=== PATIENT | male | born 1940 | race African-American/Black ===

== ENCOUNTER 2016-05-13 13:05 | Day surgery (SDC) | payer MEDICARE ==
[~2016-05-13 13:05] MED LIST: ANCEF/STERILE WATER 2 GM/20 ML 2 GM/20 ML SYRINGE IV NR; WATER FOR IRRIG STERILE IR ONE
[2016-05-13] MEDS ORDERED: DIPRIVAN 10 MG/ML IV ONE (14:10)
[2016-05-13] MEDS ORDERED: DILAUDID ONE (14:11)
[2016-05-13 14:15] LABS: Eosinophils % (Auto) 6.4 % (0.0-4.3); Hematocrit 25.7 % (35.5-45.6); Hemoglobin 8.2 gm/dl (11.8-15.2); Mean Corpuscular HGB Conc 32 % (32-34); Mean Corpuscular Hemoglobin 31 pg (28-32); Mean Corpuscular Volume 98 fl (84-94); Red Blood Count 2.62 M/mm3 (3.65-5.03); Red Cell Distribution Width 15.7 % (13.2-15.2); White Blood Count 3.8 K/mm3 (4.5-11.0)
[2016-05-13 14:17] LABS: Basophils % (Auto) 0.5 % (0.0-1.8); Platelet Count 98 K/mm3 (140-440)
[2016-05-13] MEDS ORDERED: NACL 0.9% 1000 ML 1,000 ML ONE ×2 (14:19→15:39)
--- NOTE | 2016-05-13 14:19 | Anesthesia Consultation ---
Anesthesia Consult and Med Hx Date of service: 05/13/16 - Airway Anesthetic Teeth Evaluation: Poor (2 total teeth in the mouth) ROM Head & Neck: Adequate Mental/Hyoid Distance: Adequate Mallampati Class: Class II Intubation Access Assessment: Probably Good - Pre-Operative Health Status ASA Pre-Surgery Classification: ASA3 - Pulmonary Hx Smoking: Yes (STOPPED X 40 YRS-LESS THAN A PACK PER WEEK) Hx Sleep Apnea: No (HUE PRE SCREEN LOW RISK) - Cardiovascular System Hx Hypertension: No Hx Percutaneous Transluminal Coronary Angioplasty (PTCA): Yes Hx Valvular Heart Disease: Yes (H/O valve replacement) Hx Peripheral Vascular Disease: (history of AAA surgery) - Central Nervous System Hx Neuromuscular Disorder: Yes (gout, whealchair bound) Hx Psychiatric Problems: No - Gastrointestinal Hx Ulcer: (H/O bowel surgery) - Endocrine Hx Renal Disease: Yes (CKD, BPH) Hx Liver Disease: Yes (elevated LFTs, cholodocholithiasis) - Hematic Hx Anemia: Yes - Other Systems Hx Cancer: Yes (colon CA, colon resection) - Additional Comments Anesthesia Medical History Comments: mulnutritioned
[2016-05-13 14:23] LABS: Albumin 3.1 g/dL (3.9-5); Albumin/Globulin Ratio 0.6 %; BUN/Creatinine Ratio 22.05; Bilirubin,Total 0.4 mg/dL (0.1-1.2); Calcium 8.3 mg/dL (8.4-10.2); Chloride 111.5 mmol/L (98-107); Total Protein 8.4 g/dL (6.3-8.2)
[2016-05-13] MEDS ORDERED: PEPCID IV ONE (14:25)
[2016-05-13] MEDS ORDERED: VERSED IV PRN (14:26)
--- NOTE | 2016-05-13 14:26 | Anesthesia Day of Surgery ---
Anesthesia Day of Surgery - Day of Surgery Patient Examined: Yes Patient H&P Reviewed: Yes Patient is NPO: Yes
[2016-05-13] MEDS ORDERED: NACL 0.9% 1000 ML 1,000 ML IV SCH (15:00)
[2016-05-13] MEDS ORDERED: PEPCID IV NR (15:00)
[2016-05-13] MEDS ORDERED: NEO SYNEPHRINE/NS Syringe(OR USE) IV ONE (15:03)
[2016-05-13] MEDS ORDERED: XYLOCAINE MPF 2% ONE (15:03)
[2016-05-13] MEDS ORDERED: ePHEDrine SULFATE ONE (15:05)
--- NOTE | 2016-05-13 15:20 | Post Operative Note ---
Pre-op diagnosis: urinary retention Post-op diagnosis: same Findings: MUÑOZ Procedure: cydto spt insertion Anesthesia: KALEIGH Surgeon: JACINTO KNIGHT Estimated blood loss: minimal Pathology: none Condition: stable Disposition: PACU
--- NOTE | 2016-05-13 15:23 | Discharge Summary ---
Short Stay Discharge Plan Activity: up only with assistance, other Weight Bearing Status: Partial Weight Bearing Diet: regular Wound: change dressing (q dqy .. teach pts family ) Special Instructions: other (spt care ) Durable Medical Equipment Needed Upon Discharge: other (spt ) Follow up with: DAYA NEVILLE MD [Primary Care Provider] - 7 Days JACINTO KNIGHT MD [Staff Physician] - 6 Weeks
[2016-05-13] MEDS ORDERED: WATER FOR IRRIG STERILE IR ONE ×2 (15:28)
[2016-05-13] MEDS ORDERED: ZOFRAN ONE (15:39)
--- NOTE | 2016-05-13 16:39 | Operative Report ---
PREOPERATIVE DIAGNOSES: Urinary retention and bladder dysfunction. POSTOPERATIVE DIAGNOSES: Urinary retention and bladder dysfunction. PROCEDURE: Cystoscopy, suprapubic tube insertion. SURGEON: Lior Luke MD ANESTHESIA: General. FINDINGS: This is a gentleman with a chronic retention. He now presents with a Bhatt for suprapubic tube. We could not change his Bhatt while in the office. He has difficulty getting up, in wheelchair. He now presents for tube placement. DESCRIPTION OF PROCEDURE: The patient brought to the operating room and placed on the operating table. Following induction of anesthesia, placed in lithotomy position, prepped and draped in usual sterile fashion. The area was marked. There was a midabdominal incision and so we hug the pubic bone. Flexible cystoscopy showed mild bladder, prostatic enlargement. Once the bladder was partially filled, he was placed in Trendelenburg and the incision was made through the skin. This was marked out and the Lowsley was placed and lined up with the incision. Using the cautery, we delivered the Lowsley and a 20-[place] Bhatt came out the meatus. We followed this into the bladder and filled it with approximately 18 mL of sterile water. The patient tolerated the procedure well. There was no significant bleeding. The incision was approximated using the silk for the tube and some Steri-Strips. He was brought to recovery in stable condition. Family notified. JOB# [id number] IRAIDA/ROVERTO
[2016-05-13 17:24] VITALS: BP 147/70
== END 2016-05-13 18:00 | disposition home or self-care (01) ==
LOC: OR 13:05
PROVIDERS: ATTEND Urology
DX: N31.9 Neuromuscular dysfunction of bladder, unspecified (principal); N40.0 Benign prostatic hyperplasia without lower urinary tract symptoms; N18.9 Chronic kidney disease, unspecified; D64.9 Anemia, unspecified; M10.9 Gout, unspecified; Z95.2 Presence of prosthetic heart valve; Z95.5 Presence of coronary angioplasty implant and graft; Z87.891 Personal history of nicotine dependence; Z85.038 Personal history of other malignant neoplasm of large intestine; Z87.19 Personal history of other diseases of the digestive system
CPT/HCPCS: 36415; 51040; 80053; 85025; A4217; J0690; J1170; J2250; J2370; J2405; J2704; J7030

== ENCOUNTER → 2017-09-22 | Outpatient (CLI) | payer MEDICARE ==
[~2017-09-22] MED LIST changes: -ANCEF/STERILE WATER 2 GM/20 ML 2 GM/20 ML SYRINGE IV NR; +SILVER NITRATE TP ONE; -WATER FOR IRRIG STERILE IR ONE; +XYLOCAINE TOPICAL 4% TP ONE
== END | disposition home or self-care (01) ==
LOC: WOUND 13:03
PROVIDERS: ATTEND Surgery
DX: T81.89XA Other complications of procedures, not elsewhere classified, initial encounter (principal); M10.9 Gout, unspecified; E78.5 Hyperlipidemia, unspecified; Z89.421 Acquired absence of other right toe(s); Y83.8 Other surgical procedures as the cause of abnormal reaction of the patient, or of later complication, without mention of misadventure at the time of the procedure; Y92.89 Other specified places as the place of occurrence of the external cause
CPT/HCPCS: 11042; G0463

== ENCOUNTER 2017-09-27 09:04 | Outpatient (CLI) | payer MEDICARE ==
--- NOTE | 2017-09-29 17:38 | Vascular Lab Report ---
LOWER EXTREMITY ARTERIAL DUPLEX: REASON FOR EXAM: Right foot wound. COMMENTS ON THE RIGHT: Triphasic waveforms are seen proximally. Triphasic waveforms are seen distally. No significant velocity gradients are identified. No significant plaque is identified. Findings are consistent with normal perfusion. Findings are consistent with the ability to heal distal wounds. COMMENTS ON THE LEFT: Limited study shows triphasic waveforms at the anterior tibial artery. This is within normal limits. IMPRESSION: RIGHT: Essentially normal arterial flow. LEFT:Essentially normal arterial flow.
== END 2017-09-27 09:05 | disposition home or self-care (01) ==
LOC: VAS 09:04
PROVIDERS: ATTEND Surgery
DX: L97.512 Non-pressure chronic ulcer of other part of right foot with fat layer exposed (principal); L02.611 Cutaneous abscess of right foot; I12.9 Hypertensive chronic kidney disease with stage 1 through stage 4 chronic kidney disease, or unspecified chronic kidney disease; N18.3 Chronic kidney disease, stage 3 (moderate); M86.8X7 Other osteomyelitis, ankle and foot; M10.9 Gout, unspecified; I73.9 Peripheral vascular disease, unspecified; Z90.49 Acquired absence of other specified parts of digestive tract

== ENCOUNTER 2017-09-29 07:49 | Outpatient (CLI) | payer MEDICARE ==
[2017-09-29] MEDS ORDERED: XYLOCAINE TOPICAL 4% TP ONE ×2 (08:10→08:24)
== END 2017-09-29 07:50 | disposition home or self-care (01) ==
LOC: WOUND 07:49
PROVIDERS: ATTEND Surgery
DX: T81.89XD Other complications of procedures, not elsewhere classified, subsequent encounter (principal); M10.9 Gout, unspecified; E78.5 Hyperlipidemia, unspecified; Z89.421 Acquired absence of other right toe(s); Y83.8 Other surgical procedures as the cause of abnormal reaction of the patient, or of later complication, without mention of misadventure at the time of the procedure

== ENCOUNTER 2017-10-20 07:59 | Outpatient (CLI) | payer MEDICARE ==
[2017-10-20] MEDS ORDERED: XYLOCAINE TOPICAL 4% TP ONE ×2 (08:07→08:09)
== END 2017-10-20 08:00 | disposition home or self-care (01) ==
LOC: WOUND 07:59
PROVIDERS: ATTEND Surgery
DX: T81.89XD Other complications of procedures, not elsewhere classified, subsequent encounter (principal); M10.9 Gout, unspecified; E78.5 Hyperlipidemia, unspecified; Z89.421 Acquired absence of other right toe(s); Y83.8 Other surgical procedures as the cause of abnormal reaction of the patient, or of later complication, without mention of misadventure at the time of the procedure

== ENCOUNTER 2017-10-27 08:01 | Outpatient (CLI) | payer MEDICARE ==
[2017-10-27] MEDS ORDERED: XYLOCAINE TOPICAL 4% TP ONE ×2 (08:07→08:19)
== END 2017-10-27 08:02 | disposition home or self-care (01) ==
LOC: WOUND 08:01
PROVIDERS: ATTEND Surgery
DX: T81.89XD Other complications of procedures, not elsewhere classified, subsequent encounter (principal); M10.9 Gout, unspecified; E78.5 Hyperlipidemia, unspecified; Z89.421 Acquired absence of other right toe(s); Y83.8 Other surgical procedures as the cause of abnormal reaction of the patient, or of later complication, without mention of misadventure at the time of the procedure

== ENCOUNTER 2017-11-03 08:06 | Outpatient (CLI) | payer MEDICARE ==
[2017-11-03] MEDS ORDERED: XYLOCAINE TOPICAL 4% TP ONE ×2 (08:17→08:29)
[2017-11-03] MEDS ORDERED: SILVER NITRATE TP ONE ×2 (08:56→16:29)
== END 2017-11-03 08:07 | disposition home or self-care (01) ==
LOC: WOUND 08:06
PROVIDERS: ATTEND Surgery
DX: T81.89XD Other complications of procedures, not elsewhere classified, subsequent encounter (principal); M10.9 Gout, unspecified; E78.5 Hyperlipidemia, unspecified; Z89.421 Acquired absence of other right toe(s); Y83.8 Other surgical procedures as the cause of abnormal reaction of the patient, or of later complication, without mention of misadventure at the time of the procedure
CPT/HCPCS: 11042; G0463; 99212

== ENCOUNTER 2017-11-10 07:59 | Outpatient (CLI) | payer MEDICARE ==
[2017-11-10] MEDS ORDERED: XYLOCAINE TOPICAL 4% TP ONE ×2 (08:06→08:11)
[2017-11-10] MEDS ORDERED: SILVER NITRATE TP ONE (08:11)
== END 2017-11-10 08:00 | disposition home or self-care (01) ==
LOC: WOUND 07:59
PROVIDERS: ATTEND Surgery
DX: T81.89XD Other complications of procedures, not elsewhere classified, subsequent encounter (principal); M10.9 Gout, unspecified; E78.5 Hyperlipidemia, unspecified; Z89.421 Acquired absence of other right toe(s); Y83.8 Other surgical procedures as the cause of abnormal reaction of the patient, or of later complication, without mention of misadventure at the time of the procedure

== ENCOUNTER 2017-11-17 08:02 | Outpatient (CLI) | payer MEDICARE ==
[2017-11-17] MEDS ORDERED: SILVER NITRATE TP ONE ×2 (08:12→08:24)
[2017-11-17] MEDS ORDERED: XYLOCAINE TOPICAL 4% TP ONE ×2 (08:12→08:24)
== END 2017-11-17 08:03 | disposition home or self-care (01) ==
LOC: WOUND 08:02
PROVIDERS: ATTEND Surgery
DX: T81.89XD Other complications of procedures, not elsewhere classified, subsequent encounter (principal); M10.9 Gout, unspecified; E78.5 Hyperlipidemia, unspecified; Z89.421 Acquired absence of other right toe(s); Y83.8 Other surgical procedures as the cause of abnormal reaction of the patient, or of later complication, without mention of misadventure at the time of the procedure

== ENCOUNTER 2017-12-01 08:01 | Outpatient (CLI) | payer MEDICARE ==
[2017-12-01] MEDS ORDERED: SILVER NITRATE TP ONE ×2 (08:26→08:59)
== END 2017-12-01 08:02 | disposition home or self-care (01) ==
LOC: WOUND 08:01
PROVIDERS: ATTEND Surgery
DX: T81.89XD Other complications of procedures, not elsewhere classified, subsequent encounter (principal); M10.9 Gout, unspecified; E78.5 Hyperlipidemia, unspecified; Z89.421 Acquired absence of other right toe(s); Y83.8 Other surgical procedures as the cause of abnormal reaction of the patient, or of later complication, without mention of misadventure at the time of the procedure

== ENCOUNTER 2019-03-17 16:55 | Inpatient (IN) | payer MEDICARE ==
[2019-03-17] MEDS ORDERED: traMADol 50 MG TAB PO ONE (18:41)
--- NOTE | 2019-03-17 18:43 | Event Note ---
ED Screening Note ED Screening Note: had rivera changed yesterday at urology office (changed every 6 weeks) and now blood in catheter bag. urine in tube starting to clear This initial assessment/diagnostic orders/clinical plan/treatment(s) is/are subject to change based on patients health status, clinical progression and re- assessment by fellow clinical providers in the ED. Further treatment and workup at subsequent clinical providers discretion. Patient/guardian urged not to elope from the ED as their condition may be serious if not clinically assessed and managed. Initial orders include: urine bmp cbc
[2019-03-17 20:08] LABS: INR 2.35 (0.87-1.13)
[2019-03-17 20:13] LABS: Partial Thromboplastin Time 66.4 Sec. (24.2-36.6)
[2019-03-17 20:18] LABS: Albumin 2.1 g/dL (3.9-5); Calcium 8.6 mg/dL (8.4-10.2)
[2019-03-17] MEDS ORDERED: DEXTROSE 50% IN WATER (25GM) 50 ML SYRINGE IV ONE (20:51)
[2019-03-17] MEDS ORDERED: SODIUM POLYSTYRENE 15 GM/60 ML ORAL LIQD PO ONE (20:51)
[2019-03-17] MEDS ORDERED: INSULIN REGULAR, HUMAN 100 UNITS/1 ML IV ONE (20:51)
[2019-03-17 21:08] LABS: Basophils % (Auto) 0.5 % (0.0-1.8); Eosinophils % (Auto) 0.7 % (0.0-4.3); Hematocrit 20.6 % (35.5-45.6); Hemoglobin 6.9 gm/dl (11.8-15.2); Lymphocytes # (Auto) 0.5 K/mm3 (1.2-5.4); Lymphocytes % (Auto) 15.6 % (13.4-35.0); Mean Corpuscular HGB Conc 34 % (32-34); Monocytes # (Auto) 0.2 K/mm3 (0.0-0.8); Monocytes % (Auto) 6.4 % (0.0-7.3); Red Blood Count 1.87 M/mm3 (3.65-5.03)
[2019-03-17 21:20] LABS: Bacteria,Urine 1+ /HPF (Negative); Bilirubin,Urine NEG (Negative); Blood,Urine LG (Negative); Color,Urine Amber (Yellow); Mucus,Urine FEW /HPF; Urobilinogen,Urine < 2.0 mg/dL (<2.0)
[2019-03-17 21:23] LABS: Mean Corpuscular Volume 110 fl (84-94); Red Cell Distribution Width 21.7 % (13.2-15.2)
[2019-03-17] MEDS ORDERED: cefTRIAXone/NS 2 GM/100 ML 2 GM/100 ML BAG IV ONE (21:28)
--- NOTE | 2019-03-17 21:48 | XRay Report ---
CHEST 1 VIEW INDICATION / CLINICAL INFORMATION: dyspnea. COMPARISON: None available. FINDINGS: SUPPORT DEVICES: None. HEART / MEDIASTINUM: No significant abnormality. LUNGS / PLEURA: No acute lung disease. Slight blunting of the lateral right costophrenic angle sugges ts pleural effusion. No pneumothorax. ADDITIONAL FINDINGS: Degenerative changes are noted in the thoracic spine. Gaseous distention of the stomach and small bowel. IMPRESSION: 1. No acute lung disease. Signer Name: Milan Sunshine MD Signed: 03/17/2019 9:44 PM Workstation Name: [id number]
[2019-03-17 21:58] LABS: Platelet Count 23 K/mm3 (140-440)
--- NOTE | 2019-03-17 22:15 | Emergency Department Report ---
ED General Adult HPI - General Chief complaint: Urogenital-Male Stated complaint: BLOOD IN URINE/ANEMIA/PAIN Time Seen by Provider: 03/17/19 20:30 Source: patient, family Mode of arrival: Wheelchair Limitations: Language Barrier - History of Present Illness Initial comments: Patient is a 79-year-old gentleman who has brought his grandson to interpret for him. Patient gets his Bhatt catheter replaced every 6 weeks. Patient has a history of urinary retention and stage III kidney disease. He had his Bhatt replaced yesterday and family noted large amount of blood in the Bhatt catheter bag. Patient is complaining of some generalized pain shortness of breath. Patient denies any fever nausea vomiting at this time. Family states that the patient is not on any blood thinners. Severity scale (0 -10): 9 - Related Data Home Medications Medication Instructions Recorded Confirmed Last Taken Cefuroxime Axetil [Cefuroxime] 250 mg PO QDAY 05/13/16 09/10/17 09/08/17 Previous Rx's Medication Instructions Recorded Last Taken Type Cefuroxime Axetil [Ceftin] 250 mg PO Q24H #14 ml 09/20/17 Unknown Rx Tamsulosin [Flomax] 0.4 mg PO QDAY #30 cap 09/20/17 Unknown Rx amLODIPine 10 mg PO QDAY #30 tablet 09/20/17 Unknown Rx oxyCODONE /ACETAMINOPHEN [Percocet 2 tab PO Q8H PRN #30 tablet 09/20/17 Unknown Rx 5/325 mg] predniSONE [Deltasone] 10 mg PO QDAY #30 tablet 09/20/17 Unknown Rx Allergies Allergy/AdvReac Type Severity Reaction Status Date / Time No Known Allergies Allergy Verified 02/16/13 08:37 ED Review of Systems ROS: Stated complaint: BLOOD IN URINE/ANEMIA/PAIN Other details as noted in HPI Comment: All other systems reviewed and negative ED Past Medical Hx - Past Medical History Previous Medical History?: Yes Hx Hypertension: Yes (Documented in chart however patient denies previous diagnosis.) Hx Heart Attack/AMI: No Hx Liver Disease: No Hx Renal Disease: Yes (IVANIA on CKD, urinary retention with suprapubic catheter in place) Hx Arthritis: Yes Hx Asthma: No - Surgical History Past Surgical History?: Yes Hx Cholecystectomy: Yes - Social History Smoking Status: Never Smoker Substance Use Type: None - Medications Home Medications: Home Medications Medication Instructions Recorded Confirmed Last Taken Type Cefuroxime Axetil [Cefuroxime] 250 mg PO QDAY 05/13/16 09/10/17 09/08/17 History Cefuroxime Axetil [Ceftin] 250 mg PO Q24H #14 ml 09/20/17 Unknown Rx Tamsulosin [Flomax] 0.4 mg PO QDAY #30 cap 09/20/17 Unknown Rx amLODIPine 10 mg PO QDAY #30 tablet 09/20/17 Unknown Rx oxyCODONE /ACETAMINOPHEN [Percocet 2 tab PO Q8H PRN #30 tablet 09/20/17 Unknown Rx 5/325 mg] predniSONE [Deltasone] 10 mg PO QDAY #30 tablet 09/20/17 Unknown Rx ED Physical Exam - General Limitations: Language Barrier General appearance: alert, in no apparent distress - Head Head exam: Present: atraumatic, normocephalic - Eye Eye exam: Present: normal appearance - ENT ENT exam: Present: mucous membranes moist - Neck Neck exam: Present: normal inspection - Respiratory Respiratory exam: Present: normal lung sounds bilaterally. Absent: respiratory distress, wheezes, rales, rhonchi - Cardiovascular Cardiovascular Exam: Present: regular rate, normal rhythm, normal heart sounds. Absent: systolic murmur, diastolic murmur, rubs, gallop - GI/Abdominal GI/Abdominal exam: Present: soft, tenderness, normal bowel sounds. Absent: distended, guarding, rebound - Rectal Rectal exam: Present: deferred - Extremities Exam Extremities exam: Present: normal inspection - Back Exam Back exam: Present: normal inspection - Neurological Exam Neurological exam: Present: alert, oriented X3 - Psychiatric Psychiatric exam: Present: normal affect, normal mood - Skin Skin exam: Present: warm, dry, intact, normal color. Absent: rash ED Course Vital Signs 03/17/19 03/17/19 17:11 18:39 Temperature 98.5 F Pulse Rate 78 78 Respiratory 20 18 Rate Blood Pressure 111/39 Blood Pressure 111/40 [Right] O2 Sat by Pulse 98 98 Oximetry ED Medical Decision Making - Lab Data Result diagrams: 03/17/19 21:00 03/17/19 19:26 Lab Results 03/17/19 03/17/19 03/17/19 Range/Units 19:26 19:26 21:00 WBC 3.0 L (4.5-11.0) K/mm3 RBC 1.87 L (3.65-5.03) M/mm3 Hgb 6.9 L (11.8-15.2) gm/dl Hct 20.6 L (35.5-45.6) % MCV 110 H (84-94) fl MCH 37 H (28-32) pg MCHC 34 (32-34) % RDW 21.7 H (13.2-15.2) % Plt Count 23 L (140-440) K/mm3 Lymph % (Auto) 15.6 (13.4-35.0) % Wayne % (Auto) 6.4 (0.0-7.3) % Eos % (Auto) 0.7 (0.0-4.3) % Baso % (Auto) 0.5 (0.0-1.8) % Lymph # 0.5 L (1.2-5.4) K/mm3 Wayne # 0.2 (0.0-0.8) K/mm3 Eos # 0.0 (0.0-0.4) K/mm3 Baso # 0.0 (0.0-0.1) K/mm3 Seg Neutrophils % 76.8 H (40.0-70.0) % Seg Neutrophils # 2.3 (1.8-7.7) K/mm3 PT 26.2 H (12.2-14.9) Sec. INR 2.35 H (0.87-1.13) APTT 66.4 H* (24.2-36.6) Sec. Sodium 137 (137-145) mmol/L Potassium 5.8 H (3.6-5.0) mmol/L Chloride 112.7 H (98-107) mmol/L Carbon Dioxide 10 L (22-30) mmol/L Anion Gap 20 mmol/L BUN 90 H (9-20) mg/dL Creatinine 4.1 H (0.8-1.5) mg/dL Estimated GFR 14 ml/min BUN/Creatinine Ratio 22 % Glucose 59 L (75-100) mg/dL Calcium 8.6 (8.4-10.2) mg/dL Total Bilirubin 1.80 H (0.1-1.2) mg/dL AST 183 H (5-40) units/L ALT 66 H (7-56) units/L Alkaline Phosphatase 251 H (35-129) units/L Total Protein 8.6 H (6.3-8.2) g/dL Albumin 2.1 L (3.9-5) g/dL Albumin/Globulin Ratio 0.3 % Urine Color (Yellow) Urine Turbidity (Clear) Urine pH (5.0-7.0) Ur Specific Morris (1.003-1.030) Urine Protein (Negative) mg/dL Urine Glucose (UA) (Negative) mg/dL Urine Ketones (Negative) mg/dL Urine Blood (Negative) Urine Nitrite (Negative) Urine Bilirubin (Negative) Urine Urobilinogen (<2.0) mg/dL Ur Leukocyte Esterase (Negative) Urine WBC (Auto) (0.0-6.0) /HPF Urine RBC (Auto) (0.0-6.0) /HPF Urine Bacteria (Auto) (Negative) /HPF Urine Mucus /HPF 03/17/19 Range/Units Unknown WBC (4.5-11.0) K/mm3 RBC (3.65-5.03) M/mm3 Hgb (11.8-15.2) gm/dl Hct (35.5-45.6) % MCV (84-94) fl MCH (28-32) pg MCHC (32-34) % RDW (13.2-15.2) % Plt Count (140-440) K/mm3 Lymph % (Auto) (13.4-35.0) % Wayne % (Auto) (0.0-7.3) % Eos % (Auto) (0.0-4.3) % Baso % (Auto) (0.0-1.8) % Lymph # (1.2-5.4) K/mm3 Wayne # (0.0-0.8) K/mm3 Eos # (0.0-0.4) K/mm3 Baso # (0.0-0.1) K/mm3 Seg Neutrophils % (40.0-70.0) % Seg Neutrophils # (1.8-7.7) K/mm3 PT (12.2-14.9) Sec. INR (0.87-1.13) APTT (24.2-36.6) Sec. Sodium (137-145) mmol/L Potassium (3.6-5.0) mmol/L Chloride (98-107) mmol/L Carbon Dioxide (22-30) mmol/L Anion Gap mmol/L BUN (9-20) mg/dL Creatinine (0.8-1.5) mg/dL Estimated GFR ml/min BUN/Creatinine Ratio % Glucose (75-100) mg/dL Calcium (8.4-10.2) mg/dL Total Bilirubin (0.1-1.2) mg/dL AST (5-40) units/L ALT (7-56) units/L Alkaline Phosphatase (35-129) units/L Total Protein (6.3-8.2) g/dL Albumin (3.9-5) g/dL Albumin/Globulin Ratio % Urine Color Keira (Yellow) Urine Turbidity Cloudy (Clear) Urine pH 6.0 (5.0-7.0) Ur Specific Morris 1.014 (1.003-1.030) Urine Protein 100 mg/dl (Negative) mg/dL Urine Glucose (UA) Neg (Negative) mg/dL Urine Ketones Neg (Negative) mg/dL Urine Blood Lg (Negative) Urine Nitrite Neg (Negative) Urine Bilirubin Neg (Negative) Urine Urobilinogen < 2.0 (<2.0) mg/dL Ur Leukocyte Esterase Lg (Negative) Urine WBC (Auto) 38.0 H (0.0-6.0) /HPF Urine RBC (Auto) 13.0 (0.0-6.0) /HPF Urine Bacteria (Auto) 1+ (Negative) /HPF Urine Mucus Few /HPF - Radiology Data Ordering Physician: JEY JOE MD Date of Service: 03/17/19 Procedure(s): XR chest 1V ap Accession Number(s): [id number] cc: JEY JOE MD Fluoro Time In Minutes: CHEST 1 VIEW INDICATION / CLINICAL INFORMATION: dyspnea. COMPARISON: None available. FINDINGS: SUPPORT DEVICES: None. HEART / MEDIASTINUM: No significant abnormality. LUNGS / PLEURA: No acute lung disease. Slight blunting of the lateral right costophrenic angle suggests pleural effusion. No pneumothorax. ADDITIONAL FINDINGS: Degenerative changes are noted in the thoracic spine. Gaseous distention of the stomach and small bowel. IMPRESSION: 1. No acute lung disease. Signer Name: Milan Sunshine MD Signed: 03/17/2019 9:44 PM Workstation Name: [id number] - Medical Decision Making Comparison to the patient's previous laboratory studies the patient's creatinine has doubled. He has a baseline creatinine of 2 and S4. Patient also has elevated potassium. EKG does not show any peaked T waves. Patient had his hyperkalemia treated and the patient will be admitted for observation for evaluation of worsening renal function. The patient does have evidence of UTI. Although there is gross blood in the catheter bag the new urine that is draining is clear. Patient given a dose of Rocephin. Patient does have a INR is therapeutic range for anticoagulation. Family states he did not believe he is on any anticoagulation however patient likely is on Coumadin. Patient's hyperkalemia was treated with Kayexalate, D50 and insulin Critical Care Time: Yes (30) Critical care attestation.: If time is entered above; I have spent that time in minutes in the direct care of this critically ill patient, excluding procedure time. ED Disposition Clinical Impression: Acute on chronic renal failure, Hyperkalemia, Hematuria, Acute cystitis with hematuria, Anemia in chronic illness, Metabolic acidosis Disposition: -09 OP ADMIT IP TO THIS HOSP Is pt being admited?: Yes Does the pt Need Aspirin: No Condition: Stable Time of Disposition: 22:20
[2019-03-17] MEDS ORDERED: ONDANSETRON 4 MG/2 ML INJ IV PRN (23:32)
[2019-03-17] MEDS ORDERED: MAGNESIUM HYDROXIDE (MOM) ORAL LIQD UDC PO PRN (23:32)
[2019-03-17] MEDS ORDERED: SODIUM CHLORIDE 0.9% 1000 ML 1,000 ML IV SCH (23:45)
--- NOTE | 2019-03-17 23:58 | History and Physical Report ---
History of Present Illness Date of examination: 03/17/19 Date of admission: 03/17/19 22:20 Chief complaint: Hematuria History of present illness: 79-year-old male known history of hypertension, chronic kidney disease, history of urinary retention with Bhatt catheter in place presenting to the emergency room today complaining of bloody urine. Patient is from [facility] and does not speak Estonian however son was by the bedside was able to interpret. Patient also indicates that he has been having generalized fatigue and having some shortness of breath over the past few days. He has had decreased appetite over the past 1 to 2 weeks, he has been having some nausea and vomiting and occasional bouts of diarrhea. There has been no fever or chills. He denies any chest pain. He had his Bhatt catheter replaced yesterday and patient had noticed hematuria today. Upon evaluation in the emergency room patient was found to have a UTI, hyperkalemic, elevated INR, worsening of his renal function and anemia. Vital signs were significant for hypothermia. He was started on empiric IV antibiotics. Medications were given for the hyperkalemia and subsequently admitted into the intensive care unit. Past History Past Medical History: hypertension, other (chronic kidney disease,urinary retention.) Past Surgical History: cholecystectomy, Other (suprapubic catheter placement) Social history: no significant social history Family history: no significant family history Medications and Allergies Allergies Allergy/AdvReac Type Severity Reaction Status Date / Time No Known Allergies Allergy Verified 02/16/13 08:37 Home Medications Medication Instructions Recorded Confirmed Last Taken Type Cefuroxime Axetil [Cefuroxime] 250 mg PO QDAY 05/13/16 09/10/17 09/08/17 History Cefuroxime Axetil [Ceftin] 250 mg PO Q24H #14 ml 09/20/17 Unknown Rx Tamsulosin [Flomax] 0.4 mg PO QDAY #30 cap 09/20/17 Unknown Rx amLODIPine 10 mg PO QDAY #30 tablet 09/20/17 Unknown Rx oxyCODONE /ACETAMINOPHEN [Percocet 2 tab PO Q8H PRN #30 tablet 09/20/17 Unknown Rx 5/325 mg] predniSONE [Deltasone] 10 mg PO QDAY #30 tablet 09/20/17 Unknown Rx Active Meds: Active Medications Acetaminophen (Tylenol) 650 mg PO Q4H PRN PRN Reason: Pain MILD(1-3)/Fever >100.5/PEREZ Sodium Chloride (Nacl 0.9% 1000 Ml) 1,000 mls @ 75 mls/hr IV DIRECT ANA LAURA Ceftriaxone Sodium (Rocephin/Ns 1 Gm/50 Ml) 1 gm in 50 mls @ 100 mls/hr IV Q24HR ANA LAURA; Protocol Magnesium Hydroxide (Milk Of Magnesia) 30 ml PO Q4H PRN PRN Reason: Constipation Ondansetron HCl (Zofran) 4 mg IV Q8H PRN PRN Reason: Nausea And Vomiting Sodium Chloride (Sodium Chloride Flush Syringe 10 Ml) 10 ml IV BID ANA LAURA Sodium Chloride (Sodium Chloride Flush Syringe 10 Ml) 10 ml IV PRN PRN PRN Reason: LINE FLUSH Review of Systems Constitutional: weight loss, fever, anorexia, fatigue, weakness Cardiovascular: no chest pain, no palpitations Respiratory: no cough, no hemoptysis Gastrointestinal: nausea, vomiting, diarrhea Genitourinary Male: hematuria Musculoskeletal: neck pain Integumentary: no rash, no pruritis Neurological: no headaches, no change in mentation Exam - Constitutional Vitals: Temp Pulse Resp BP Pulse Ox 98.5 F 78 18 111/39 98 03/17/19 17:11 03/17/19 18:39 03/17/19 18:39 03/17/19 18:39 03/17/19 18:39 General appearance: Present: no acute distress, cachectic - EENT Eyes: Present: PERRL, EOM intact ENT: hearing intact, clear oral mucosa, dentition normal - Neck Neck: Present: supple, normal ROM - Respiratory Respiratory effort: normal Respiratory: bilateral: CTA - Cardiovascular Rhythm: regular Heart Sounds: Present: S1 & S2 - Extremities Extremities: no ischemia, pulses intact, Full ROM Extremity abnormal: edema (1+) - Abdominal General gastrointestinal: Present: soft, non-tender, non-distended - Integumentary Integumentary: Present: clear, warm, dry - Musculoskeletal Musculoskeletal: strength equal bilaterally, other (severe arthritic changes on fingers and toes.) - Psychiatric Psychiatric: appropriate mood/affect - Neurologic Neurologic: CNII-XII intact, moves all extremities Results - Labs CBC & Chem 7: 03/18/19 05:19 03/18/19 05:19 Labs: Abnormal lab results 02/08/2703/17/19 03/17/19 Range/Units 19:26 19:26 21:00 WBC 3.0 L (4.5-11.0) K/mm3 RBC 1.87 L (3.65-5.03) M/mm3 Hgb 6.9 L (11.8-15.2) gm/dl Hct 20.6 L (35.5-45.6) % MCV 110 H (84-94) fl MCH 37 H (28-32) pg RDW 21.7 H (13.2-15.2) % Plt Count 23 L (140-440) K/mm3 Lymph # 0.5 L (1.2-5.4) K/mm3 Seg Neutrophils % 76.8 H (40.0-70.0) % PT 26.2 H (12.2-14.9) Sec. INR 2.35 H (0.87-1.13) APTT 66.4 H* (24.2-36.6) Sec. Potassium 5.8 H (3.6-5.0) mmol/L Chloride 112.7 H (98-107) mmol/L Carbon Dioxide 10 L (22-30) mmol/L BUN 90 H (9-20) mg/dL Creatinine 4.1 H (0.8-1.5) mg/dL Glucose 59 L (75-100) mg/dL Total Bilirubin 1.80 H (0.1-1.2) mg/dL AST 183 H (5-40) units/L ALT 66 H (7-56) units/L Alkaline Phosphatase 251 H (35-129) units/L Total Protein 8.6 H (6.3-8.2) g/dL Albumin 2.1 L (3.9-5) g/dL Urine WBC (Auto) (0.0-6.0) /HPF 03/17/19 Range/Units Unknown WBC (4.5-11.0) K/mm3 RBC (3.65-5.03) M/mm3 Hgb (11.8-15.2) gm/dl Hct (35.5-45.6) % MCV (84-94) fl MCH (28-32) pg RDW (13.2-15.2) % Plt Count (140-440) K/mm3 Lymph # (1.2-5.4) K/mm3 Seg Neutrophils % (40.0-70.0) % PT (12.2-14.9) Sec. INR (0.87-1.13) APTT (24.2-36.6) Sec. Potassium (3.6-5.0) mmol/L Chloride (98-107) mmol/L Carbon Dioxide (22-30) mmol/L BUN (9-20) mg/dL Creatinine (0.8-1.5) mg/dL Glucose (75-100) mg/dL Total Bilirubin (0.1-1.2) mg/dL AST (5-40) units/L ALT (7-56) units/L Alkaline Phosphatase (35-129) units/L Total Protein (6.3-8.2) g/dL Albumin (3.9-5) g/dL Urine WBC (Auto) 38.0 H (0.0-6.0) /HPF Assessment and Plan - Patient Problems (1) Acute cystitis with hematuria Current Visit: Yes Status: Acute Plan to address problem: Patient placed on empiric IV antibiotics. We await her urine culture result. (2) Acute on chronic renal failure Current Visit: Yes Status: Acute Plan to address problem: Patient given IV fluid. Consult has been placed to nephrology for evaluation and further recommendation. (3) Anemia in chronic illness Onset Date: 11/11/15 Current Visit: Yes Status: Acute Plan to address problem: Patient will be transfused with packed red blood cells as needed. Will monitor CBC (4) Hyperkalemia Current Visit: Yes Status: Acute Plan to address problem: Patient has had insulin and glucose in the emergency room. There were no EKG changes. Will monitor EKG and also monitor potassium level. (5) Nausea & vomiting Current Visit: No Status: Acute Qualifiers: Vomiting type: unspecified Vomiting Intractability: non-intractable Qualified Code(s): R11.2 - Nausea with vomiting, unspecified Plan to address problem: We placed on IV fluid. Also initiate IV Zofran as needed. (6) Urinary retention due to benign prostatic hyperplasia Current Visit: No Status: Acute Plan to address problem: Patient has suprapubic catheter in place. (7) DVT prophylaxis Current Visit: Yes Status: Acute Plan to address problem: He has been placed on sequential compression device. (8) Full code status Current Visit: Yes Status: Acute
[2019-03-18] MEDS ORDERED: SODIUM POLYSTYRENE 15 GM/60 ML ORAL LIQD ONE (00:37)
[2019-03-18] MEDS ORDERED: cefTRIAXone/NS 2 GM/100 ML 2 GM/100 ML BAG IV ONE (00:37)
[2019-03-18] MEDS ORDERED: INSULIN REGULAR, HUMAN 100 UNITS/1 ML ONE (00:38)
[2019-03-18] MEDS ORDERED: DEXTROSE 50% IN WATER (25GM) 50 ML SYRINGE IV ONE (00:39)
[2019-03-18] MEDS ORDERED: SODIUM CHLORIDE 0.9% 250ML 250 ML IV ONE ×2 (01:06→05:54)
[2019-03-18 05:31] LABS: Basophils % (Auto) 0.5 % (0.0-1.8); Eosinophils % (Auto) 0.7 % (0.0-4.3); Lymphocytes # (Auto) 0.4 K/mm3 (1.2-5.4); Lymphocytes % (Auto) 14.3 % (13.4-35.0); Mean Corpuscular HGB Conc 33 % (32-34); Monocytes # (Auto) 0.1 K/mm3 (0.0-0.8); Monocytes % (Auto) 5.3 % (0.0-7.3); Red Blood Count 1.59 M/mm3 (3.65-5.03)
[2019-03-18 05:32] LABS: Mean Corpuscular Volume 111 fl (84-94); Red Cell Distribution Width 22.7 % (13.2-15.2)
[2019-03-18 05:37] LABS: Hematocrit 17.7 % (35.5-45.6); Hemoglobin 5.9 gm/dl (11.8-15.2)
[2019-03-18 05:44] LABS: INR 2.24 (0.87-1.13)
[2019-03-18 05:47] LABS: Partial Thromboplastin Time 61.9 Sec. (24.2-36.6)
[2019-03-18] MEDS ORDERED: SODIUM CHLORIDE 0.9% 500 ML 500 ML IV ONE ×3 (05:54→13:35)
[2019-03-18 05:56] LABS: Calcium 8.2 mg/dL (8.4-10.2)
[2019-03-18 07:02] LABS: Platelet Count 20 K/mm3 (140-440)
[2019-03-18] MEDS ORDERED: SODIUM CHLORIDE 0.9% 1000 ML 1,000 ML IV SCH (07:30)
[2019-03-18] MEDS ORDERED: SODIUM CHLORIDE 0.9% 500 ML 500 ML IV SCH (09:00)
[2019-03-18] MEDS: ACETAMINOPHEN 325 MG TAB PO PRN ×2 (09:30→17:56)
[2019-03-18] MEDS ORDERED: cefTRIAXone/NS 1 GM/50 ML 1 GM/50 ML BAG IV SCH (10:00)
--- NOTE | 2019-03-18 11:43 | Progress Note ---
Assessment and Plan (1) Acute cystitis with hematuria Current Visit: Yes Status: Acute Plan to address problem: Patient placed on empiric IV antibiotics. We await her urine culture result. (2) Acute on chronic renal failure Current Visit: Yes Status: Acute Plan to address problem: Patient given IV fluid. Consult has been placed to nephrology for evaluation and further recommendation. (3) Anemia in chronic illness Onset Date: 11/11/15 Current Visit: Yes Status: Acute Plan to address problem: Patient will be transfused with packed red blood cells as needed. Will monitor CBC (4) Hyperkalemia Current Visit: Yes Status: Acute Plan to address problem: Patient has had insulin and glucose in the emergency room. There were no EKG changes. Will monitor EKG and also monitor potassium level. (5) Nausea & vomiting Current Visit: No Status: Acute Qualifiers: Vomiting type: unspecified Vomiting Intractability: non-intractable Qualified Code(s): R11.2 - Nausea with vomiting, unspecified Plan to address problem: We placed on IV fluid. Also initiate IV Zofran as needed. (6) Urinary retention due to benign prostatic hyperplasia Current Visit: No Status: Acute Plan to address problem: Patient has suprapubic catheter in place. (7) DVT prophylaxis Current Visit: Yes Status: Acute Plan to address problem: He has been placed on sequential compression device. (8) Full code status Current Visit: Yes Status: Acute Brief History: 79-year-old male known history of hypertension, chronic kidney disease, history of urinary retention with Bhatt catheter in place presenting to the emergency ro om today complaining of bloody urine. He had his Bhatt catheter replaced yesterday and patient had noticed hematuria. Upon evaluation in the emergency room patient was found to have a UTI, hyperkale katelyn, elevated INR, worsening of his renal function and anemia. Vital signs were significant for hypothermia. He was started on empiric IV antibiotics. Medications were given for the hyperkalemia and subsequently admitted into the intensive care unit. Hospitalist Physical exam: GENERAL: well-developed and well-nourished lying on bed appeared to be in no discomfort. HEENT: Normocephalic. Atraumatic. No conjunctival congestion or icterus. Patient has moist mucous membranes. NECK: Supple. Trachea midline. CHEST/LUNGS: Clear to auscultated bilaterally, breathing nonlabored. No wheezes crackles or rhonchi. HEART/CARDIOVASCULAR: Regular in rate and rhythm. S1 and S2 positive. ABDOMEN: Abdomen is soft, nontender. Patient has normal bowel sounds. SKIN: There is no rash. Warm and dry. NEURO: No focal motor deficit. Follows command. MUSCULOSKELETAL: No joint effusion or tenderness. EXTRIMITY: No edema, no cyanosis or clubbing. PSYCH: Cooperative. Subjective Date of service: 03/18/19 Objective - Constitutional Vitals: Vital Signs - 12hr 03/18/19 03/18/19 03/18/19 00:50 01:00 01:08 Temperature 89.9 F L 89.9 F L Pulse Rate 74 Respiratory 74 H 16 Rate Blood Pressure Blood Pressure 95/45 [Right] O2 Sat by Pulse 97 100 Oximetry 03/18/19 03/18/19 03/18/19 01:15 01:30 01:45 Temperature Pulse Rate 79 80 82 Respiratory 18 23 21 Rate Blood Pressure 82/30 97/34 100/32 Blood Pressure [Right] O2 Sat by Pulse 100 97 97 Oximetry 03/18/19 03/18/19 03/18/19 02:00 02:15 02:30 Temperature Pulse Rate 81 81 82 Respiratory 19 17 19 Rate Blood Pressure 107/53 111/54 109/56 Blood Pressure [Right] O2 Sat by Pulse 98 Oximetry 03/18/19 03/18/19 03/18/19 02:45 03:00 03:15 Temperature Pulse Rate 80 83 81 Respiratory 17 19 15 Rate Blood Pressure 105/52 103/53 100/51 Blood Pressure [Right] O2 Sat by Pulse Oximetry 03/18/19 03/18/19 03/18/19 03:30 03:45 04:00 Temperature Pulse Rate 84 84 86 Respiratory 18 16 17 Rate Blood Pressure 106/52 96/45 89/45 Blood Pressure [Right] O2 Sat by Pulse 98 98 Oximetry 03/18/19 03/18/19 03/18/19 04:10 04:15 04:30 Temperature 93.1 F L Pulse Rate 84 86 83 Respiratory 18 14 16 Rate Blood Pressure 92/46 86/42 Blood Pressure 105/52 [Right] O2 Sat by Pulse 98 99 98 Oximetry 03/18/19 03/18/19 03/18/19 04:41 04:51 06:10 Temperature 93.9 F L Pulse Rate 82 80 Respiratory 16 16 Rate Blood Pressure 86/42 84/42 Blood Pressure [Right] O2 Sat by Pulse 100 99 Oximetry 03/18/19 03/18/19 03/18/19 06:12 06:31 07:01 Temperature Pulse Rate 66 71 64 Respiratory 10 L 18 20 Rate Blood Pressure 84/42 134/83 124/79 Blood Pressure [Right] O2 Sat by Pulse 97 97 Oximetry 03/18/19 03/18/19 03/18/19 07:31 08:00 08:01 Temperature 97.5 F L Pulse Rate 64 68 Respiratory 14 14 Rate Blood Pressure 112/77 101/68 Blood Pressure [Right] O2 Sat by Pulse 96 96 Oximetry 03/18/19 03/18/19 03/18/19 08:15 09:27 09:30 Temperature Pulse Rate 75 119 H 118 H Respiratory 15 29 H 33 H Rate Blood Pressure 104/70 94/44 Blood Pressure [Right] O2 Sat by Pulse 97 99 98 Oximetry 03/18/19 03/18/19 03/18/19 09:45 10:00 10:15 Temperature Pulse Rate 110 H 111 H 118 H Respiratory 32 H 30 H 33 H Rate Blood Pressure 93/43 89/47 99/49 Blood Pressure [Right] O2 Sat by Pulse 98 97 97 Oximetry 03/18/19 03/18/19 03/18/19 10:25 10:30 10:45 Temperature 96.2 F L 96.2 F L Pulse Rate 106 H 113 H Respiratory 29 H 29 H Rate Blood Pressure 89/44 93/45 Blood Pressure [Right] O2 Sat by Pulse 97 97 Oximetry 03/18/19 03/18/19 11:00 11:15 Temperature 96.0 F L Pulse Rate 113 H 109 H Respiratory 26 H 26 H Rate Blood Pressure 91/45 88/40 Blood Pressure [Right] O2 Sat by Pulse 97 96 Oximetry - Labs CBC & Chem 7: 03/18/19 18:48 03/18/19 05:19 Labs: Abnormal lab results 03/17/19 03/17/19 03/17/19 Range/Units 19:26 19:26 21:00 WBC 3.0 L (4.5-11.0) K/mm3 RBC 1.87 L (3.65-5.03) M/mm3 Hgb 6.9 L (11.8-15.2) gm/dl Hct 20.6 L (35.5-45.6) % MCV 110 H (84-94) fl MCH 37 H (28-32) pg RDW 21.7 H (13.2-15.2) % Plt Count 23 L (140-440) K/mm3 Lymph # 0.5 L (1.2-5.4) K/mm3 Seg Neutrophils % 76.8 H (40.0-70.0) % PT 26.2 H (12.2-14.9) Sec. INR 2.35 H (0.87-1.13) APTT 66.4 H* (24.2-36.6) Sec. Potassium 5.8 H (3.6-5.0) mmol/L Chloride 112.7 H (98-107) mmol/L Carbon Dioxide 10 L (22-30) mmol/L BUN 90 H (9-20) mg/dL Creatinine 4.1 H (0.8-1.5) mg/dL Glucose 59 L (75-100) mg/dL Calcium (8.4-10.2) mg/dL Total Bilirubin 1.80 H (0.1-1.2) mg/dL AST 183 H (5-40) units/L ALT 66 H (7-56) units/L Alkaline Phosphatase 251 H (35-129) units/L Total Protein 8.6 H (6.3-8.2) g/dL Albumin 2.1 L (3.9-5) g/dL Urine WBC (Auto) (0.0-6.0) /HPF Crossmatch 03/17/19 03/18/19 03/18/19 Range/Units Unknown 05:19 05:19 WBC 2.6 L (4.5-11.0) K/mm3 RBC 1.59 L (3.65-5.03) M/mm3 Hgb 5.9 L* (11.8-15.2) gm/dl Hct 17.7 L* (35.5-45.6) % MCV 111 H (84-94) fl MCH 37 H (28-32) pg RDW 22.7 H (13.2-15.2) % Plt Count 20 L (140-440) K/mm3 Lymph # 0.4 L (1.2-5.4) K/mm3 Seg Neutrophils % 79.2 H (40.0-70.0) % PT 25.2 H (12.2-14.9) Sec. INR 2.24 H (0.87-1.13) APTT 61.9 H* (24.2-36.6) Sec. Potassium (3.6-5.0) mmol/L Chloride (98-107) mmol/L Carbon Dioxide (22-30) mmol/L BUN (9-20) mg/dL Creatinine (0.8-1.5) mg/dL Glucose (75-100) mg/dL Calcium (8.4-10.2) mg/dL Total Bilirubin (0.1-1.2) mg/dL AST (5-40) units/L ALT (7-56) units/L Alkaline Phosphatase (35-129) units/L Total Protein (6.3-8.2) g/dL Albumin (3.9-5) g/dL Urine WBC (Auto) 38.0 H (0.0-6.0) /HPF Crossmatch 03/18/19 03/18/19 Range/Units 05:19 06:59 WBC (4.5-11.0) K/mm3 RBC (3.65-5.03) M/mm3 Hgb (11.8-15.2) gm/dl Hct (35.5-45.6) % MCV (84-94) fl MCH (28-32) pg RDW (13.2-15.2) % Plt Count (140-440) K/mm3 Lymph # (1.2-5.4) K/mm3 Seg Neutrophils % (40.0-70.0) % PT (12.2-14.9) Sec. INR (0.87-1.13) APTT (24.2-36.6) Sec. Potassium (3.6-5.0) mmol/L Chloride 114.5 H (98-107) mmol/L Carbon Dioxide 7 L* (22-30) mmol/L BUN 90 H (9-20) mg/dL Creatinine 4.2 H (0.8-1.5) mg/dL Glucose 45 L (75-100) mg/dL Calcium 8.2 L (8.4-10.2) mg/dL Total Bilirubin (0.1-1.2) mg/dL AST (5-40) units/L ALT (7-56) units/L Alkaline Phosphatase (35-129) units/L Total Protein (6.3-8.2) g/dL Albumin (3.9-5) g/dL Urine WBC (Auto) (0.0-6.0) /HPF Crossmatch See Detail
[2019-03-18] MEDS ORDERED: SODIUM BICARBONATE 150 MEQ in DEXTROSE 5% IN WATER 1,000 ML IV SCH (12:00)
[2019-03-18] MEDS ORDERED: SODIUM BICARB 8.4% 50 MEQ/50 ML SYRINGE IV ONE ×2 (12:00→18:30)
[2019-03-18] MEDS ORDERED: SODIUM CHLORIDE 0.9% 1000 ML 1,000 ML IV ONE (12:00)
--- NOTE | 2019-03-18 12:36 | Consultation ---
History of Present Illness Consult date: 03/18/19 Requesting physician: ANAI FELIX Reason for consult: other (CRITICAL CARE) History of present illness: 79-year-old male known history of hypertension, chronic kidney disease, history of urinary retention with Bhatt catheter in place presenting to the emergency room today complaining of bloody urine. Patient is from [facility] and does not speak [place] however son was by the bedside was able to interpret. Patient also indicates that he has been having generalized fatigue and having some shortness of breath over the past few days. He has had decreased appetite over the past 1 to 2 weeks, he has been having some nausea and vomiting and occasional bouts of diarrhea. There has been no fever or chills. He denies any chest pain. He had his Bhatt catheter replaced yesterday and patient had noticed hematuria today. Upon evaluation in the emergency room patient was found to have a UTI, hyperkalemic, elevated INR, worsening of his renal function and anemia. Vital signs were significant for hypothermia. He was started on empiric IV antibiotics. Medications were given for the hyperkalemia and subsequently admitted into the intensive care unit. I have been consulted for critical care management. Patient was seen and examined. Vitals, labs, medications, cahrt and imaging reviewed. Pham is at the bedside, and states the patient has not eaten much in the last 2 weeks, just dwindling. He had nausea and vomitng, but no diarrhea, no fevers or chills. He complains of a lot of pain from a gouty flare in his right foot. He also state his grandfather has not walked for several years now. He has a suprapubic catheter for a large prostate. He was brought in because of the hematuria. While at the bedside, a glucose check was done and his blood glucose was 20. He has blood products going through the peripheral and no other access. As he was receiving orange juice, I noted he was coughing a lot. Review of Systems Constitutional: weight loss, fever, anorexia, fatigue, weakness Cardiovascular: no chest pain, no palpitations Respiratory: no cough, no hemoptysis Gastrointestinal: nausea, vomiting, diarrhea Genitourinary Male: hematuria Musculoskeletal: neck pain, pain in his right foot Integumentary: no rash, no pruritis Neurological: no headaches, no change in mentation Past History Past Medical History: hypertension, other (chronic kidney disease,urinary retention.) Past Surgical History: cholecystectomy, Other (suprapubic catheter placement) Social history: no significant social history Family history: no significant family history Medications and Allergies Allergies Allergy/AdvReac Type Severity Reaction Status Date / Time No Known Allergies Allergy Verified 02/16/13 08:37 Home Medications Medication Instructions Recorded Confirmed Last Taken Type Cefuroxime Axetil [Cefuroxime] 250 mg PO QDAY 05/13/16 03/18/19 12/18/18 History Cefuroxime Axetil [Ceftin] 250 mg PO Q24H #14 ml 09/20/17 03/18/19 12/18/18 Rx Tamsulosin [Flomax] 0.4 mg PO QDAY #30 cap 09/20/17 03/18/19 12/18/18 Rx amLODIPine 10 mg PO QDAY #30 tablet 09/20/17 03/18/19 12/18/18 Rx oxyCODONE /ACETAMINOPHEN [Percocet 2 tab PO Q8H PRN #30 tablet 09/20/17 03/18/19 Unknown Rx 5/325 mg] predniSONE [Deltasone] 10 mg PO QDAY #30 tablet 09/20/17 03/18/19 12/18/18 Rx Colchicine 0.6 mg PO BID 03/18/19 03/18/19 03/14/19 History Active Meds: Active Medications Acetaminophen (Tylenol) 650 mg PO Q4H PRN PRN Reason: Pain MILD(1-3)/Fever >100.5/PEREZ Last Admin: 03/18/19 09:30 Dose: 650 mg Documented by: Ceftriaxone Sodium (Rocephin/Ns 1 Gm/50 Ml) 1 gm in 50 mls @ 100 mls/hr IV Q24HR ANA LAURA; Protocol Sodium Chloride (Nacl 0.9% 500 Ml) 500 mls @ 0 mls/hr IV DIRECT ANA LAURA Last Admin: 03/18/19 09:31 Dose: 42 mls/hr Documented by: Sodium Chloride (Nacl 0.9% 1000 Ml) 1,000 mls @ 999 mls/hr IV BOLUS ONE Stop: 03/18/19 13:00 Sodium Bicarbonate 150 meq/ (Dextrose) 1,150 mls @ 150 mls/hr IV DIRECT ANA LAURA Magnesium Hydroxide (Milk Of Magnesia) 30 ml PO Q4H PRN PRN Reason: Constipation Ondansetron HCl (Zofran) 4 mg IV Q8H PRN PRN Reason: Nausea And Vomiting Sodium Chloride (Sodium Chloride Flush Syringe 10 Ml) 10 ml IV BID ANA LAURA Last Admin: 03/18/19 09:31 Dose: 10 ml Documented by: Sodium Chloride (Sodium Chloride Flush Syringe 10 Ml) 10 ml IV PRN PRN PRN Reason: LINE FLUSH Physical Examination Vital signs: Vital Signs Temp Pulse Resp BP Pulse Ox 98.5 F 78 20 111/40 98 03/17/19 17:11 03/17/19 17:11 03/17/19 17:11 03/17/19 17:11 03/17/19 17:11 Reviewed - General Limitations: General appearance: alert, in mild respiratory distress, tachypnic, chronically ill looking Chronically ill looking, - Head Head exam: Present: atraumatic, normocephalic - Eye Eye exam: Present: normal appearance - ENT ENT exam: Present: mucous membranes moist - Neck Neck exam: Present: normal inspection - Respiratory Respiratory exam: Present: normal lung sounds bilaterally. Absent: respiratory distress, wheezes, rales, rhonchi - Cardiovascular Cardiovascular Exam: Present: regular rate, normal rhythm, normal heart sounds. Absent: systolic murmur, diastolic murmur, rubs, gallop - GI/Abdominal GI/Abdominal exam: Present: soft, tenderness, normal bowel sounds. Absent: distended, guarding, rebound - Rectal Rectal exam: Present: deferred - Extremities Exam Extremities exam: Present: normal inspection,atrophic lower extremities. Right foot- tophi with some erythema - Back Exam Back exam: Present: normal inspection - Neurological Exam Neurological exam: Present: alert, oriented X2 - Psychiatric Psychiatric exam: Present: normal affect, normal mood - Skin Skin exam: Present: warm, dry, intact, normal color. Results - Laboratory Findings CBC and BMP: 03/18/19 18:48 03/18/19 05:19 PT/INR, D-dimer PT 25.2 Sec. (12.2-14.9) H 03/18/19 05:19 INR 2.24 (0.87-1.13) H 03/18/19 05:19 Abnormal lab findings: Abnormal Labs 02/07/20 02/07/20 02/07/20 19:26 19:26 21:00 WBC 3.0 L RBC 1.87 L Hgb 6.9 L Hct 20.6 L MCV 110 H MCH 37 H RDW 21.7 H Plt Count 23 L Lymph # 0.5 L Seg Neutrophils % 76.8 H PT 26.2 H INR 2.35 H APTT 66.4 H* Potassium 5.8 H Chloride 112.7 H Carbon Dioxide 10 L BUN 90 H Creatinine 4.1 H Glucose 59 L Calcium Total Bilirubin 1.80 H AST 183 H ALT 66 H Alkaline Phosphatase 251 H Total Protein 8.6 H Albumin 2.1 L Urine WBC (Auto) Crossmatch 03/17/19 03/18/19 03/18/19 Unknown 05:19 05:19 WBC 2.6 L RBC 1.59 L Hgb 5.9 L* Hct 17.7 L* MCV 111 H MCH 37 H RDW 22.7 H Plt Count 20 L Lymph # 0.4 L Seg Neutrophils % 79.2 H PT 25.2 H INR 2.24 H APTT 61.9 H* Potassium Chloride Carbon Dioxide BUN Creatinine Glucose Calcium Total Bilirubin AST ALT Alkaline Phosphatase Total Protein Albumin Urine WBC (Auto) 38.0 H Crossmatch 03/18/19 03/18/19 05:19 06:59 WBC RBC Hgb Hct MCV MCH RDW Plt Count Lymph # Seg Neutrophils % PT INR APTT Potassium Chloride 114.5 H Carbon Dioxide 7 L* BUN 90 H Creatinine 4.2 H Glucose 45 L Calcium 8.2 L Total Bilirubin AST ALT Alkaline Phosphatase Total Protein Albumin Urine WBC (Auto) Crossmatch See Detail - Diagnostic Findings Chest x-ray: image reviewed (No acute pulmoanry infiltrate) Assessment and Plan -Acute renal failure with hyperkalemia -Severe metabolic acidosis -Severe anemia -Acute cystitis and Hematuria -Pancytopenia -Coagulopathy -Aspiration risk -Moderate protein calorie malnutrition -FOBT, transfuse 2 units PRBC -Transfuse 2 units FFP and 1 unit platelets -Stat ABG, may need NIPPV support for work of breathing- currently tachypnic but this appears to be related to the severity of his acidosis -Supplemental oxygen to keep O2 sats>90% -IV bicarbonate infusion-judiciously, unknown heart function -Avoid nephrotoxins, dose all antibiotics for GFR and CrCL -Antibiotics, follow up urine cultures, then de-escalate or adjust based on MCKAYLA adn ID/sensitivities -Urology consult re hematuria -Serial CBC, PT/INR -Accuchecks q1 -Treat hypoglycemia and monitor closely -Place small bowel feeding tube, once placement is confirmed start tube feedings -Nepro ordered, RD consult placed -Analgesia and pain management- avoid narcotics -Aspiration precautions, HOB >40 -Speech language pathologist to evaluate swallow function -SCDs for VTE prophylaxis -Therapeutic PPI -Mobility and off loading for pressure ulcer prevention -Hematology and Renal consults CONDITION: CRITICAL PROGNOSIS: GUARDED CODE STATUS: FULL CODE The high probability of a clinically significant, sudden or life threatening deterioration of the [ renal, hematology and respiratory ] system(s) required my full and direct attention, intervention and personal management. The aggregate critical care time was [35] minutes. This time is in addition to time spent performing reported procedures but includes the following: [x] Data Review and interpretation [x] Patient assessment and monitoring of vital signs [x] Documentation [x] Medication orders and management The patient is full code in the event of cardiopulmonary arrest. Discussed with RT and RN
[2019-03-18] MEDS ORDERED: DEXTROSE 50% IN WATER (25GM) 50 ML VIAL IV PRN (12:40)
[2019-03-18] MEDS ORDERED: SIMPLE SYRUP 15 ML FEEDTUBE PRN ×2 (13:39)
[2019-03-18] MEDS ORDERED: LIPASE 10,500/PROTEASE 25,000/AMYLASE 43,750 (UNITS) DR CAP FEEDTUBE PRN (13:39)
[2019-03-18] MEDS ORDERED: SODIUM BICARBONATE 325 MG TAB FEEDTUBE PRN (13:39)
[2019-03-18] MEDS: INSULIN REGULAR, HUMAN 100 UNITS/1 ML SUB-Q SCH ×3 (14:07→21:16)
[2019-03-18] MEDS ORDERED: DEXTROSE 5% IN WATER 1,000 ML IV ONE (14:41)
[2019-03-18 14:58] LABS: ABG Base Excess -18.8 mmol/L (-2.0-3.0); ABG HCO3 7.1 mmol/L (20.0-26.0); ABG Methemoglobin 0.5 % (0.0-1.5); ABG Oxygen Saturation 95.7 % (95.0-99.0); ABG PCO2 18.4 mm Hg; ABG PH 7.207 pH Units (7.350-7.450); ABG PO2 88.5 mm Hg (80.0-90.0)
--- NOTE | 2019-03-18 15:34 | Consultation ---
History of Present Illness - Reason for Consult acute renal failure - History of Present Illness 79-year-old medical history significant for prostate problems currently with suprapubic catheter presenting with hematuria following with the replacements according to family members suprapubic catheter is replaced every 6 weeks he has been having nausea and vomiting as well as poor oral intake. He does have a history of chronic kidney disease with baseline creatinine of about 2 prior to admission with a creatinine of 4 he has lower extremity edema has no fever or chills Past History Past Medical History: hypertension, other (chronic kidney disease,urinary retent ion.) Past Surgical History: cholecystectomy, Other (suprapubic catheter placement) Social history: no significant social history Family history: no significant family history Medications and Allergies Allergies Allergy/AdvReac Type Severity Reaction Status Date / Time No Known Allergies Allergy Verified 02/16/13 08:37 Home Medications Medication Instructions Recorded Confirmed Last Taken Type Cefuroxime Axetil [Cefuroxime] 250 mg PO QDAY 05/13/16 09/10/17 09/08/17 History Cefuroxime Axetil [Ceftin] 250 mg PO Q24H #14 ml 09/20/17 Unknown Rx Tamsulosin [Flomax] 0.4 mg PO QDAY #30 cap 09/20/17 Unknown Rx amLODIPine 10 mg PO QDAY #30 tablet 09/20/17 Unknown Rx oxyCODONE /ACETAMINOPHEN [Percocet 2 tab PO Q8H PRN #30 tablet 09/20/17 Unknown Rx 5/325 mg] predniSONE [Deltasone] 10 mg PO QDAY #30 tablet 09/20/17 Unknown Rx Active Meds: Active Medications Acetaminophen (Tylenol) 650 mg PO Q4H PRN PRN Reason: Pain MILD(1-3)/Fever >100.5/PEREZ Last Admin: 03/18/19 09:30 Dose: 650 mg Documented by: Lipase/Protease/Amylase (Pancreamairani Dejesus 10,500 Unit) 1 each FEEDTUBE PRN PRN PRN Reason: For Clogged Feeding Tube Dextrose (D50w (25gm) Vial) 50 gm IV Q30MIN PRN; Protocol PRN Reason: Hypoglycemia Last Admin: 03/18/19 14:01 Dose: 50 gm Documented by: Ceftriaxone Sodium (Rocephin/Ns 1 Gm/50 Ml) 1 gm in 50 mls @ 100 mls/hr IV Q24HR ANA LAURA; Protocol Sodium Chloride (Nacl 0.9% 500 Ml) 500 mls @ 0 mls/hr IV DIRECT ANA LAURA Last Admin: 03/18/19 09:31 Dose: 42 mls/hr Documented by: Sodium Bicarbonate 150 meq/ (Dextrose) 1,150 mls @ 150 mls/hr IV DIRECT ANA LAURA Last Admin: 03/18/19 13:54 Dose: 150 mls/hr Documented by: Insulin Human Regular (Humulin R) 0 units SUB-Q Q4H ANA LAURA; Protocol Last Admin: 03/18/19 14:07 Dose: Not Given Documented by: Magnesium Hydroxide (Milk Of Magnesia) 30 ml PO Q4H PRN PRN Reason: Constipation Ondansetron HCl (Zofran) 4 mg IV Q8H PRN PRN Reason: Nausea And Vomiting Simple Syrup (Simple Syrup) 15 ml FEEDTUBE PRN PRN PRN Reason: Hypoglycemia Simple Syrup (Simple Syrup) 30 ml FEEDTUBE PRN PRN PRN Reason: Hypoglycemia Sodium Bicarbonate (Sodium Bicarbonate) 325 mg FEEDTUBE PRN PRN PRN Reason: For Clogged Feeding Tube Sodium Chloride (Sodium Chloride Flush Syringe 10 Ml) 10 ml IV BID [facility] Last Admin: 03/18/19 09:31 Dose: 10 ml Documented by: Sodium Chloride (Sodium Chloride Flush Syringe 10 Ml) 10 ml IV PRN PRN PRN Reason: LINE FLUSH Review of Systems Constitutional: no weight loss, no weight gain, no fever, no chills Ears, nose, mouth and throat: no deferred, no ear pain, no ear discharge Cardiovascular: no chest pain, no orthopnea, no palpitations Respiratory: no cough, no cough with sputum Gastrointestinal: nausea, vomiting Genitourinary Male: hematuria, urinary retention Rectal: no pain Musculoskeletal: no neck stiffness, no neck pain Integumentary: no growths Neurological: no head injury, no transient paralysis Psychiatric: no anxiety, no memory loss Endocrine: no cold intolerance, no heat intolerance Hematologic/Lymphatic: no easy bruising Exam - Vital Signs Vital signs: Vital Signs Temp Pulse Resp BP Pulse Ox 98.5 F 78 20 111/40 98 03/17/19 17:11 03/17/19 17:11 03/17/19 17:11 03/17/19 17:11 03/17/19 17:11 - General Appearance General appearance: cachectic, chronically ill, frail EENT: ATNC, PERRL Neck: Present: neck supple Respiratory: Clear to Ascultation Heart: regular, S1S2 Gastrointestinal: Present: normal, normoactive bowel sounds, other (suprapubic catheter) Integumentary: no rash Neurologic: alert and oriented x3, CN 3-12 intact Psychiatric: mood/affect appropriate Results - Lab Results 03/18/19 05:19 03/18/19 05:19 Most recent lab results ABG pH 7.207 pH Units (7.350-7.450) L 03/18/19 14:35 ABG pCO2 18.4 mm Hg 03/18/19 14:35 ABG pO2 88.5 mm Hg (80.0-90.0) 03/18/19 14:35 ABG HCO3 7.1 mmol/L (20.0-26.0) L 03/18/19 14:35 ABG O2 Saturation 95.7 % (95.0-99.0) 03/18/19 14:35 Calcium 8.2 mg/dL (8.4-10.2) L 03/18/19 05:19 - Image Kidney/bladder ultrasound: other (reviewed chest x-ray without pulmonary edema) Assessment and Plan - Patient Problems (1) Acute on chronic renal failure Current Visit: Yes Status: Acute Plan to address problem: Acute on chronic renal failure baseline chronic kidney disease stage IV with creatinine of about 2 Worsening creatinine to 4 Etiology likely secondary to volume depletion and tubular injury We'll give additional 2 L bolus Obtain renal ultrasound Continue bicarbonate drip Avoid nephrotoxic medications (2) Anemia in chronic illness Onset Date: 11/11/15 Current Visit: Yes Status: Acute Plan to address problem: Severe anemia hemoglobin 5.9. Plan for transfusion Has ongoing hematuria Recheck CBC (3) Hematuria Current Visit: Yes Status: Acute Plan to address problem: Hematuria history of suprapubic catheter Follows up with Dr. Isacc Pelayo Recent Suprapubic catheter exchange. Please consult urology (4) Metabolic acidosis Current Visit: Yes Status: Acute Plan to address problem: Metabolic acidosis -severe will give bicarb infusion -check lactate levels.
[2019-03-18] MEDS ORDERED: D5W/0.9% NACL 1,000 ML IV ONE (16:12)
[2019-03-18] MEDS ORDERED: AMIODARONE 150 MG/3 ML INJ IV ONE (18:30)
[2019-03-18] MEDS ORDERED: EPINEPHrine 1:10,000 1 MG/10 ML SYRINGE ONE (18:30)
[2019-03-18 18:57] LABS: Hematocrit 25.7 % (35.5-45.6)
--- NOTE | 2019-03-18 19:00 | Event Note ---
I responded to WAGNER JUDD in the ICU. Upon my arrival Dr. Church at the bedside directing ACLS with chest compressions and bag valve mask ventilations in progress. Positive return of spontaneous circulation with continued decreased patient's responsiveness and intermittent and respirations. Patient intubated without paralytics or sedatives. - Intubation Time Out Performed: Yes Sedative: none Laryngoscope: Pati Size: 4 ET Tube Size: 7.5 Tube Secured Depth (cm): 22 Tube Secured Location: teeth Tube Placement Confirmation: visualized tube passing t, equal breath sounds bilat, no breath sounds over epi, confirmation by capnometr Patient Tolerated Procedure: well Intubation Complications: none
[2019-03-18 19:07] LABS: ABG Base Excess -22.5 mmol/L (-2.0-3.0); ABG HCO3 7.7 mmol/L (20.0-26.0); ABG Methemoglobin 0.8 % (0.0-1.5); ABG Oxygen Saturation 77.8 % (95.0-99.0); ABG PCO2 34.1 mm Hg; ABG PO2 60.4 mm Hg (80.0-90.0)
[2019-03-18 19:10] LABS: ABG PH 6.97 pH Units (7.350-7.450)
--- NOTE | 2019-03-18 19:10 | XRay Report ---
CHEST 1 VIEW INDICATION: ETT placement. COMPARISON: 03/17/2019 FINDINGS: Support devices: Endotracheal tube in satisfactory position. Heart: Stable cardiomegaly. Lungs/Pleura: Development of diffuse bilateral opacity which is moderate in degree. Additional findings: None. IMPRESSION: 1. Endotracheal tube in satisfactory position. 2. Development of diffuse bilateral opacity. Given the rapid development, atypical edema is favored o kenneth infection. Developing ARDS is also a possibility. Signer Name: George Anthony MD Signed: 03/18/2019 7:05 PM Workstation Name: [id number]
[2019-03-18] MEDS ORDERED: NORepinephrine/NS 4 MG-250 ML 4 MG/250 ML BAG IV ONE (20:59)
[2019-03-18] MEDS ORDERED: fentaNYL 100 MCG/2 ML INJ IV PRN (21:11)
[2019-03-18] MEDS ORDERED: LIP THERAPY VASELINE TP PRN (21:11)
[2019-03-18 21:51] VITALS: BP 82/43
[2019-03-18] MEDS ORDERED: NORepinephrine/NS 4 MG-250 ML 4 MG/250 ML BAG IV SCH (22:00)
[2019-03-18] MEDS ORDERED: fentaNYL DRIP Premix 2,000 MCG/100 ML BAG IV SCH (22:00)
--- NOTE | 2019-03-18 22:21 | Event Note ---
Date: 03/18/19 Patient was made DNR at 9 PM which is 21 hours Patient pronounced at 22 hours 20 hours Grandson physician is Dr. Church certificate to be signed by Dr. Gold
--- NOTE | 2019-03-19 10:03 | Death Summary ---
Summary - Providers Date of service: 03/19/19 Consults: 03/18/19 06:37 Consult to Physician [CONS] Routine Comment: Consulting Provider: MILDRED CHILDS Physician Instructions: Reason For Exam: acute on chronic renal failure 03/18/19 06:38 Consult to Physician [CONS] Routine Comment: Consulting Provider: TASHA MUÑOZ Physician Instructions: Reason For Exam: hematuria,elevated inr, uti,sepsis 03/18/19 13:34 Consult to Dietitian/Nutrition [CONS] Routine Physician Instructions: Reason For Exam: Reason for Consult: Write/Manage Tube Feeding 03/18/19 13:39 Consult to Dietitian/Nutrition [CONS] Routine Physician Instructions: Assess nutrtn needs, initiate, modify, manage TF Reason For Exam: Reason for Consult: Write/Manage Tube Feeding Reason for Consult: Write/Manage Tube Feeding 03/18/19 14:29 Midline [Consult to PICC Line RN] [CONS] Urgent Reason For Exam: Urgent blood product transfusions and fluids Type Line:: Midline Attending: ANAI FELIX - summary Date of admission: 03/17/19 22:20 Date of : 03/18/19
== END 2019-03-18 22:33 | DRG 683 ==
LOC: ED 16:55 → 4A 22:20 → CC1 03-18 02:14
PROVIDERS: ADMIT Internal Medicine Geriatric Medicine; ATTEND Internal Medicine
PROC: 30233N1 Transfusion of Nonautologous Red Blood Cells into Peripheral Vein, Percutaneous Approach (ICD-10-PCS; principal; 2019-03-18)
PROC: 30233K1 Transfusion of Nonautologous Frozen Plasma into Peripheral Vein, Percutaneous Approach (ICD-10-PCS; 2019-03-18)
PROC: 4A033R1 Measurement of Arterial Saturation, Peripheral, Percutaneous Approach (ICD-10-PCS; 2019-03-18)
PROC: 5A1935Z Respiratory Ventilation, Less than 24 Consecutive Hours (ICD-10-PCS; 2019-03-18)
PROC: 0BH17EZ Insertion of Endotracheal Airway into Trachea, Via Natural or Artificial Opening (ICD-10-PCS; 2019-03-18)
DX: N17.9 Acute kidney failure, unspecified (principal); N30.01 Acute cystitis with hematuria; E87.2 Acidosis; D61.818 Other pancytopenia; D68.9 Coagulation defect, unspecified; E44.0 Moderate protein-calorie malnutrition; I12.9 Hypertensive chronic kidney disease with stage 1 through stage 4 chronic kidney disease, or unspecified chronic kidney disease; N18.4 Chronic kidney disease, stage 4 (severe); M19.90 Unspecified osteoarthritis, unspecified site; D63.1 Anemia in chronic kidney disease; R33.9 Retention of urine, unspecified; E87.5 Hyperkalemia; N40.0 Benign prostatic hyperplasia without lower urinary tract symptoms; Z66 Do not resuscitate; Z90.49 Acquired absence of other specified parts of digestive tract; Z79.4 Long term (current) use of insulin; Z68.20 Body mass index [BMI] 20.0-20.9, adult; Z99.2 Dependence on renal dialysis
CPT/HCPCS: 36415; 36600; 71045; 80048; 80053; 81001; 82803; 82962; 85014; 85018; 85025; 85610; 85730; 86850; 86900; 86901; 86920; 87070; 87076; 87086; 87186; 87205; 93005; 93010; 94002; 94003; 96361; 96365; 96375; G0378; J0171; J0282; J0696; J1815; J7030; J7040; J7042; J7050; J7070; P9016; P9017